=== PATIENT | female | born 1975 | race Caucasian/White ===

== ENCOUNTER 2019-02-04 20:56 | Inpatient (IN) | payer MEDICAID | END 2019-02-05 14:30 | disposition home or self-care (01) | LOC: TELE 02-05 01:54 → TELE-WESTW 02-05 03:10 → ER 20:56 ==

== ENCOUNTER 2019-07-31 18:26 | Emergency (ER) | payer MEDICAID ==
[~2019-07-31] VITALS: Ht 167.6 cm; Wt 54.9 kg
[~2019-07-31 18:26] MED LIST: BUP75T PO; CARI350T22 PO; HYDR-4833 PO; LEVO150T10 PO; LORA-205 PO; LURA80TA PO; OMEP20CA74 PO; PAR20T PO; QUET300T3 PO
[2019-07-31 18:45] VITALS: BP 93/61
[2019-07-31 19:40] LABS: Basophils # (auto) 0 uL; Basophils % (auto) 0.5 % (0.0-2.0); Eosinophils # (auto) 0.2 uL; Eosinophils % (auto) 4.7 % (0.0-7.0); Hematocrit 42.1 % (36.0-46.0); Hemoglobin 13.6 g/dL (12.2-16.2); Lymphocytes # (auto) 0.6 uL; Mean Corpuscular Hemoglobin 29.7 pg (28.0-32.0); Mean Corpuscular Hgb Conc. 32.3 g/dL (32.0-36.0); Mean Corpuscular Volume 91.7 fL (80.0-100.0); Monocytes # (auto) 0.6 uL; Monocytes % (auto) 16.8 % (0.0-12.0); Neutrophils # (auto) 2.1 uL; Platelet Count (auto) 182 10^3/uL (140-450); Red Blood Cells 4.58 10^6/uL (4.0-5.20); Red Cell Distribution Width 17.2 % (11.8-14.3); White Blood Cell 3.6 10^3/uL (4.4-10.8)
[2019-07-31 19:57] LABS: Albumin 2.3 g/dL (3.4-5.0); BUN/Creatinine Ratio 9.5; Calcium 7.3 mg/dL (8.5-10.1); Potassium 3.2 mmol/L (3.5-5.1)
[2019-07-31 20:07] LABS: Bilirubin, Total 0.2 mg/dL (0.2-1.0)
[2019-07-31] MEDS ORDERED: THIAMINE 100mg/ml INJ (200mg/2ml VIAL) IV ONE (20:15)
[2019-07-31] MEDS ORDERED: POTASSIUM CHL 20 Meq TABLET PO ONE (20:15)
== END 2019-07-31 21:45 | disposition home or self-care (01) ==
LOC: EDBD 18:26 → ER 18:30
DX: F10.129 Alcohol abuse with intoxication, unspecified (principal); R41.82 Altered mental status, unspecified; G92 Toxic encephalopathy; E87.6 Hypokalemia; F32.9 Major depressive disorder, single episode, unspecified; F20.9 Schizophrenia, unspecified; F17.210 Nicotine dependence, cigarettes, uncomplicated; Z88.0 Allergy status to penicillin; Z88.5 Allergy status to narcotic agent; Z79.899 Other long term (current) drug therapy; Y90.6 Blood alcohol level of 120-199 mg/100 ml
CPT/HCPCS: 36415; 70450; 72125; 80053; 80320; 85025; 96374; 99284; J3411

== ENCOUNTER 2020-04-04 21:51 | Emergency (ER) | payer MEDICAID ==
[~2020-04-04] VITALS: Ht 144.8 cm; Wt 54.0 kg
[2020-04-04 22:05] VITALS: BP 116/81
[2020-04-04 22:39] LABS: Basophils # (auto) 0 10 ^3/uL (0-0.2); Basophils % (auto) 0.7 % (0.0-2.0); Eosinophils # (auto) 0.1 10 ^3/uL (0-0.8); Eosinophils % (auto) 1.9 % (0.0-7.0); Hematocrit 43.5 % (36.0-46.0); Hemoglobin 13.8 g/dL (12.2-16.2); Lymphocytes # (auto) 0.6 10 ^3/uL (0.4-5.4); Lymphocytes % (auto) 14.9 % (10.0-50.0); Mean Corpuscular Hemoglobin 27.7 pg (28.0-32.0); Mean Corpuscular Hgb Conc. 31.7 g/dL (32.0-36.0); Mean Corpuscular Volume 87.3 fL (80.0-100.0); Monocytes # (auto) 0.7 10 ^3/uL (0-1.3); Monocytes % (auto) 16.5 % (0.0-12.0); Neutrophils # (auto) 2.6 10 ^3/uL (1.6-8.6); Nucleated Red Blood Cells % 0.1 %; Platelet Count (auto) 205 10^3/uL (140-450); Red Blood Cells 4.98 10^6/uL (4.0-5.20); Red Cell Distribution Width 19.5 % (11.8-14.3)
[2020-04-04 22:44] LABS: Alcohol, Urine < 3.0 mg/dL (0-10); Amphetamine Screen, Urine NEGATIVE (NEGATIVE); Barbiturate Scree,Urine NEGATIVE (NEGATIVE); Benzodiazephine Screen, Urine NEGATIVE (NEGATIVE); Cannabinoid Screen, Urine NEGATIVE (NEGATIVE); Cocaine Screen, Urine NEGATIVE (NEGATIVE); Opiate Scree,Urine POSITIVE (NEGATIVE); Phencyclidine Screen, Urine NEGATIVE (NEGATIVE)
[2020-04-04 22:49] LABS: Urine Bacteria NONE SEEN /hpf (None Seen); Urine Blood Negative /uL (Negative); Urine Specific Gravity 1.006 (1.001-1.035); Urine WBC 1 /hpf (0 - 5)
[2020-04-04 22:56] LABS: Albumin 2.8 g/dL (3.4-5.0); Potassium 3.3 mmol/L (3.5-5.1)
[2020-04-04 22:59] LABS: BUN/Creatinine Ratio 11.1; Bilirubin, Total 0.2 mg/dL (0.2-1.0); Total Protein 6.4 g/dL (6.4-8.2)
== END 2020-04-05 02:15 | disposition left against medical advice (07) ==
LOC: EDBD 21:51 → ER 21:51
DX: R56.9 Unspecified convulsions (principal); Z53.21 Procedure and treatment not carried out due to patient leaving prior to being seen by health care provider
CPT/HCPCS: 36415; 70450; 80053; 80307; 81001; 81025; 85025

== ENCOUNTER 2020-04-05 07:29 | Emergency (ER) | payer MEDICAID ==
[~2020-04-05] VITALS: Ht 144.8 cm; Wt 53.5 kg
[2020-04-05 07:44] VITALS: BP 129/84
== END 2020-04-05 08:19 | disposition home or self-care (01) ==
LOC: ER 07:29
DX: R56.9 Unspecified convulsions (principal); F41.9 Anxiety disorder, unspecified; F17.210 Nicotine dependence, cigarettes, uncomplicated

== ENCOUNTER 2021-07-05 17:38 | Emergency (ER) | payer MEDICAID ==
[~2021-07-05] VITALS: Ht 147.3 cm; Wt 81.6 kg
[~2021-07-05 17:38] MED LIST changes: -BUP75T PO; +BUPR75TA11 PO; -QUET300T3 PO; +QUET300T4 PO
[2021-07-05] MEDS ORDERED: SODIUM CHLORIDE 0.9% 1,000 ML IVB ONE (18:30)
[2021-07-05 20:58] LABS: Albumin 2.9 g/dL (3.4-5.0); Calcium 7.9 mg/dL (8.5-10.1); Potassium 3.7 mmol/L (3.5-5.1)
[2021-07-05 21:00] LABS: Basophils # (auto) 0.1 10 ^3/uL (0-0.2); Basophils % (auto) 2.7 % (0.0-2.0); Eosinophils # (auto) 0.3 10 ^3/uL (0-0.8); Eosinophils % (auto) 5.8 % (0.0-7.0); Hematocrit 40.3 % (36.0-46.0); Hemoglobin 12.9 g/dL (12.2-16.2); Lymphocytes # (auto) 1.2 10 ^3/uL (0.4-5.4); Lymphocytes % (auto) 22.7 % (10.0-50.0); Mean Corpuscular Hemoglobin 27.9 pg (28.0-32.0); Mean Corpuscular Hgb Conc. 32.1 g/dL (32.0-36.0); Monocytes # (auto) 0.4 10 ^3/uL (0-1.3); Monocytes % (auto) 8.7 % (0.0-12.0); Neutrophils # (auto) 3.1 10 ^3/uL (1.6-8.6); Neutrophils % (auto) 60.1 % (37.0-80.0); Nucleated Red Blood Cells % 0.1 %; Red Blood Cells 4.64 10^6/uL (4.0-5.20); Red Cell Distribution Width 17.5 % (11.8-14.3); White Blood Cell 5.2 10^3/uL (4.4-10.8)
[2021-07-05 21:01] LABS: BUN/Creatinine Ratio 10.9; Bilirubin, Total 0.2 mg/dL (0.2-1.0)
[2021-07-05] MEDS ORDERED: levETIRAcetam 500 MG/5ML INJ IV ONE (22:46)
[2021-07-05 23:21] VITALS: BP 134/74
== END 2021-07-05 23:24 | disposition home or self-care (01) ==
LOC: ER 17:38 → EDBD 17:38 → ER 23:24
DX: R56.9 Unspecified convulsions (principal); F10.129 Alcohol abuse with intoxication, unspecified; E11.9 Type 2 diabetes mellitus without complications; E03.9 Hypothyroidism, unspecified; F17.210 Nicotine dependence, cigarettes, uncomplicated; Z90.49 Acquired absence of other specified parts of digestive tract; Z90.710 Acquired absence of both cervix and uterus; Z90.89 Acquired absence of other organs; Z79.899 Other long term (current) drug therapy; Z88.0 Allergy status to penicillin; Z88.5 Allergy status to narcotic agent; Y90.7 Blood alcohol level of 200-239 mg/100 ml
CPT/HCPCS: 36415; 80053; 80320; 85025; 96365; 96366; 99284; J1953; J7030; J7060

== ENCOUNTER 2024-11-16 03:29 | Emergency (ER) | payer MEDICAID ==
[~2024-11-16] VITALS: Ht 147.3 cm; Wt 54.5 kg
[~2024-11-16 03:29] MED LIST changes: -BUPR75TA11 PO; +BUPR75TA89 PO; +CARI-578 PO; -CARI350T22 PO; -LURA80TA PO; +LURA80TA2 PO
--- NOTE | 2024-11-16 04:24 | DVH ---
EXAM: XY L KNEE 3V XRAY HISTORY: LEFT KNEE PAIN COMPARISON: None TECHNIQUE: 3 views of the left knee were performed. FINDINGS: No acute fracture is identified about the left knee. No significant joint space narrowing. No evide nce of significant joint effusion. IMPRESSION: 1. Unremarkable radiographs of the left knee.
[2024-11-16] MEDS ORDERED: IBUP-1456 PO (04:57)
--- NOTE | 2024-11-16 04:57 | ED.PDOC ---
Musculoskeletal HPI Comments 49-YEAR-OLD FEMALE PRESENTS TO ER WITH COMPLAINTS OF LEFT KNEE PAIN X1 DAY. PATIENT PRESENTS TO ER VIA EMS, REPORTING THAT SHE TRIPPED OVER A CORD INSIDE HER HOUSE YESTERDAY AND LANDED ON HER LEFT KNEE ONTO CARPET AND HAS SINCE BEEN EXPERIENCING LEFT KNEE PAIN. DENIES HEAD INJURY/LOC. SHE RATES HER CURRENT PAIN A 10/10 LOCALIZED TO THE LEFT KNEE WITHOUT RADIATION. DENIES USE OF MEDICATIONS FOR CURRENT SYMPTOMS. DENIES LEFT HIP PAIN, NUMBNESS/TINGLING, LEFT TIB-FIB PAIN, LEFT FOOT/LEFT ANKLE PAIN OR ANY FURTHER SYMPTOMS/COMPLAINTS Chief Complaint: Lower Extremity Time Seen by MD: 03:53 Primary Care Provider: VIVIANA Reviewed Notes: Nurses Notes, Medications, Allergies Allergies: Coded Allergies: Morphine (Verified Allergy, Unknown, 03/04/14) Penicillins (Verified Allergy, Unknown, 03/04/14) Home Meds Active Scripts Ibuprofen (Ibuprofen) 800 Mg Tab, 1 TAB PO TID PRN, #30 TAB 0 Refills Prov:ROCHELLE VENTURA 11/16/24 Reported Medications Hydrocodone-Acetaminophen ([place] 5/325MG) 1 Tab Tb, 1 TAB PO TID, #90 TAB 02/05/19 Levothyroxine Sodium (Levothyroxine Sodium) 150 Mcg Tab, 150 MCG PO QAM for 30 Days 02/05/19 Lurasidone Hcl (LATUDA) 80 Mg Tab, 2 TAB PO QPM, #30 TAB 2 Refills with food 05/14/15 Quetiapine Fumerate (Seroquel Xr) 300 Mg Tab, 150 MG PO QPM, #30 TAB 1 Refill 05/14/15 Bupropion Hcl (WELLBUTRIN TABLET) 75 Mg Tb, 75 MG PO HS 03/05/14 Omeprazole (PRILOSEC) 20 Mg Cap, 20 MG PO DAILY, CAP 03/05/14 Paroxetine (PAXIL TABLET) 20 Mg Tb, 20 MG PO HS 03/05/14 Carisoprodol (Carisoprodol) 350 Mg Tab, 350 MG PO BID, #1 TAB 03/04/14 Lorazepam (Ativan) 1 Mg Tab, 1 MG PO BID, #1 TAB 03/04/14 Information Source: Patient Mode of Arrival: EMS Past Medical History PAST MEDICAL HISTORY: Depression, DM, Schizophrenia, Seizures, Thyroid Past Medical History (Other): BIPOLAR Surgical History: Cholecystectomy, Hysterectomy, Tonsillectomy AIRCRAFT MACHINIST History: No Pertinent AIRCRAFT MACHINIST History Family History Family History: Family hx of DM, Family hx of heart festus Social History Smoker: Cigarettes, Less Than 1 Pack/Day Alcohol: Occasionally Drugs: Denies Drug Use Lives In: Home Constitutional: denies: chills, diaphoresis, fatigue, fever, malaise, sweats, weakness, others EENTM: denies: blurred vision, double vision, ear bleeding, ear discharge, ear drainage, ear pain, ear ringing, eye pain, eye redness, hearing loss, mouth pain, mouth swelling, nasal discharge, nose bleeding, nose congestion, nose pain, photophobia, tearing, throat pain, throat swelling, voice changes, others Respiratory: denies: cough, hemoptysis, orthopnea, SOB at rest, shortness of breath, SOB with excertion, stridor, wheezing, others Cardiovascular: denies: chest pain, dizzy spells, diaphoresis, Dyspnea on exertion, edema, irregular heart beat, left arm pain, lightheadedness, palpitations, PND, syncope, others Gastrointestinal: denies: abdomen distended, abdominal pain, blood streaked bowels, constipated, diarrhea, dysphagia, difficulty swallowing, hematemesis, melena, nausea, poor appetite, poor fluid intake, rectal bleeding, rectal pain, vomiting, others Genitourinary: denies: abnormal vagina bleeding, burning, dyspareunia, dysuria, flank pain, frequency, hematuria, incontinence, pain, , vagina discharge, urgency, others Neurological: denies: dizziness, fainting, headache, left sided numbness, left sided weakness, numbness, paresthesia, pre-existing deficit, right sided numbness, right sided weakness, seizure, speech problems, tingling, tremors, weakness, others Musculoskeletal: reports: others ( STATED IN HPI) Integumetry: denies: bruises, change in color, change in hair/nails, dryness, laceration, lesions, lumps, rash, wounds, others Allergic/Immunocompromised: denies: Difficulty Healing, Frequent Infections, Hives, Itching, others Hematologic/Lymphatic: denies: anemia, blood clots, easy bleeding, easy bruising, swollen glands, others Endocrine: denies: excessive hunger, excessive sweating, excessive thirst, excessive urination, flushing, intolerance to cold, intolerance to heat, unexplained weight gain, unexplained weight loss, others Psychiatric: denies: anxiety, bipolar disorder, depression, hopeless, panic disorder, schizophrenia, sleepless, suicidal, others Physical Exam General Appearance: No Apparent Distress HEENT: PERRL/EOMI Neck: Full Range of Motion, Non-Tender, Normal Respiratory: Chest Non-Tender, Lungs Clear, No Accessory Muscle Use, No Respiratory Distress, Normal Breath Sounds Cardiovascular: No Murmur, No Gallop, Regular Rate/Rhythm Breast Exam: Deferred Gastrointestinal: NOT DONE Genitalia: Deferred Pelvic: Deferred Rectal: Deferred Extremities: No calf tenderness, Normal capillary refill Musculoskeletal : Extremity Location: Knee (TTP TO LEFT ANTERIOR KNEE NOTED. NO SKIN CHANGES/DEFORMITY NOTED. POSITIVE ANTERIOR DRAWER TEST LEFT KNEE. NEGATIVE WILDER'S TEST LEFT KNEE. PATIENT FAVORS RIGHT LEG ON AMBULATION DUE TO PAIN LOCALIZED TO LEFT ANTERIOR KNEE. NO OTHER TTP TO LEFT LOWER EXTREMITY NOTED. PULSES INTACT) Neurologic: Alert, garment manufacturer II-XII nml as Tested, No Motor Deficits, Normal Affect, Normal Mood, No Sensory Deficits Cerebellar Function: Normal Reflexes: Normal Skin: Dry, Normal Color, Warm Peripheral Pulses: 2+ dorsalis pedis (R), 2+ dorsalis pedis (L) Lymphatic: No Adenopathy Was a procedure done? Was a procedure done?: No Sedation Sedation?: No Differential Diagnosis EXT Differential Diagnosis: Fracture, Dislocation, Neurovascular injury X-Ray, Labs, Meds, VS Vital Signs Date Time Temp Pulse Resp B/P (MAP) Pulse Ox O2 Delivery O2 Flow Rate FiO2 11/16/24 03:39 98.7 89 22 104/67 (79) 99 PATIENT: APOLONIA ROJAS ACCT: [id number] UNIT: [id number] : 1975 LOC: ER ROOM / BED: / AGE / SEX: 49 / F ADM STATUS: REG ER SERVICE [id number] ORDERING PHYSICIAN: ROCHELLE VENTURA PROCEDURE(s): LKNE3 - L KNEE 3V XRAY REASON: LEFT KNEE PAIN ORDER NUMBER(s): [id number], ACCESSION NUMBER(s): [id number] EXAM: XY L KNEE 3V XRAY HISTORY: LEFT KNEE PAIN COMPARISON: None TECHNIQUE: 3 views of the left knee were performed. FINDINGS: No acute fracture is identified about the left knee. No significant joint space narrowing. No evidence of significant joint effusion. IMPRESSION: 1. Unremarkable radiographs of the left knee. ATED BY: MARBELLA BENITEZ MD DICTATED DATE/TIME: 11/16/24420 SIGNED BY: MARBELLA BENITEZ MD SIGNED DATE/TIME: 11/16/24420 CC: LEFT KNEE X-RAY REVIEWED NAPROXEN 500 MG P.O. ORDERED PATIENT NEUROVASCULARLY INTACT AND REPORTED IMPROVEMENT IN SYMPTOMS PRIOR TO DISCHARGE LEFT KNEE IMMOBILIZER APPLIED CRUTCHES ORDERED, PATIENT EDUCATED ON PROPER USE. WAS ADVISED ON USE AT ALL TIMES ADVISED ON REST/NO STRENUOUS ACTIVITY, ELEVATION AND ALTERNATE ICE ON/OFF NEEDED FOR PAIN/SWELLING ADVISED TO FOLLOW UP WITH PCP AND ORTHOPEDICS IN 1-2 DAYS PATIENT VERBALIZED UNDERSTANDING AND AGREEABLE WITH CURRENT PLAN OF CARE ADVISED TO RETURN TO ER IMMEDIATELY IF SYMPTOMS WORSEN Images Reviewed?: Images reviewed and evaluated by me Time of 1ST Reevaluation: 04:24 Reevaluation 1ST: N/A Patient Education/Counseling: Diagnosis, Treatment, Prognosis, Need For Follow Up Family Education/Counseling: No Family Present Departure 1 Departure Time of Disposition: 04:52 Impression: Primary Impression: Left knee sprain Qualified Codes: S83.92XA - Sprain of unspecified site of left knee, initial encounter Disposition: HOME / SELF CARE / HOMELESS Condition: Stable e-Prescriptions Ibuprofen (Ibuprofen) 800 Mg Tab 1 TAB PO TID PRN, #30 TAB 0 Refills Prov: ROCHELLE VENTURA 11/16/24 Discharged With: Friend Critical Care Note Critical Care Time?: No Stability Stability form required: No Heart Score Heart Score: Heart Score Response (Comments) Value History N/A 0 EKG N/A 0 Age N/A 0 Risk Factors N/A 0 Troponin N/A 0 Total 0 ROCHELLE VENTURA Nov 16, 2024 04:57
[2024-11-16] MEDS: NAPROXEN 500 MG TAB PO ONE (05:09)
[2024-11-16 05:34] VITALS: BP 109/65; PULSE 75; RESP 18; TEMP 98.3; O2SAT 99
== END 2024-11-16 05:33 | disposition home or self-care (01) ==
LOC: ER 03:29 → EDBD 03:29 → EDUNIT# 03:29 → ER 05:33
DX: S83.92XA Sprain of unspecified site of left knee, initial encounter (principal); F17.210 Nicotine dependence, cigarettes, uncomplicated; E11.9 Type 2 diabetes mellitus without complications; E03.9 Hypothyroidism, unspecified; Z88.0 Allergy status to penicillin; Z88.6 Allergy status to analgesic agent; Z79.899 Other long term (current) drug therapy; Z90.49 Acquired absence of other specified parts of digestive tract; Z90.89 Acquired absence of other organs; Z90.710 Acquired absence of both cervix and uterus; W18.49XA Other slipping, tripping and stumbling without falling, initial encounter; Y93.89 Activity, other specified; Y92.89 Other specified places as the place of occurrence of the external cause; Y99.8 Other external cause status
CPT/HCPCS: 29505; 73562